=== PATIENT | male | born 1950 | race Two or more races ===

== ENCOUNTER 2017-02-13 17:22 | Emergency (ER) | payer MEDICARE ==
[~2017-02-13] VITALS: Ht 152.4 cm; Wt 76.9 kg
[2017-02-13] MEDS ORDERED: SODIUM CHLORIDE 0.9% 1,000ML IVBOLUS ONE (18:00)
[2017-02-13] MEDS ORDERED: SODIUM CHLORIDE FLUSH 10ML SYR IVF ONE (18:00)
[2017-02-13] MEDS ORDERED: ACETAMINOPHEN 500 MG TABLET PO ONE (18:00)
[2017-02-13 18:29] LABS: RAPID INFLUENZA A Negative (Negative); RAPID INFLUENZA B Negative (Negative)
[2017-02-13 18:30] LABS: ASPARTATE AMINO TRANSFERASE 35 U/L (15-37); BLOOD UREA NITROGEN 18 mg/dL (7-18)
[2017-02-13] MEDS ORDERED: ACETAMINOPHEN 500 MG TABLET ONE (19:39)
[2017-02-13] MEDS ORDERED: KETOROLAC 30 MG/1 ML IVPush ONE (20:00)
[2017-02-13] MEDS ORDERED: KETOROLAC 30 MG/1 ML ONE (20:24)
[2017-02-13 20:57] VITALS: BP 114/63
== END 2017-02-13 21:23 | disposition home or self-care (01) ==
LOC: ED 21:17
DX: B34.9 Viral infection, unspecified (principal); R50.9 Fever, unspecified; E11.9 Type 2 diabetes mellitus without complications
CPT/HCPCS: 36415; 71010; 80053; 83605; 84145; 85025; 87040; 87400; 93005; 96361; 96374; 99285; J1885; J7030

== ENCOUNTER → 2017-06-25 | Outpatient (CLI) | payer MEDICARE | END | disposition home or self-care (01) | LOC: CFH 12:21 | PROVIDERS: ATTEND Family Medicine | DX: Z87.442 Personal history of urinary calculi (principal) | CPT/HCPCS: 74000 ==